=== PATIENT | female | born 1955 | race Caucasian/White ===

== ENCOUNTER 2017-05-03 12:42 | Inpatient (IN) ==
[2017-05-03] MEDS ORDERED: Naloxone 0.4 MG/ML INJ IVP PRN (16:34)
[2017-05-03] MEDS ORDERED: Ondansetron 4 MG/2 ML VIAL IVP PRN (16:34)
[2017-05-03] MEDS ORDERED: Albuterol 2.5 MG/3 ML NEBULIZER IH PRN (16:45)
[2017-05-03] MEDS ORDERED: *HR* OxyCODONE Immed Rel 5 MG TABLET PO PRN (17:21)
[2017-05-03] MEDS ORDERED: 0.9 % Sodium Chloride 1,000 ML IVC SCH (17:30)
[2017-05-03] MEDS: *HR* Morphine 2 MG/ML SYRINGE IVP PRN (17:36)
--- NOTE | 2017-05-03 17:36 | Internal Med History&Physical ---
Date of Encounter: 05/03/17 Time of Encounter: 17:00 Assessment and Plan (1) Hypertension Current visit: Yes Status: Acute Patient has no high BP at this point, will place on hydralazine IV when necessary. Will consider resume home medication after verification Qualifiers: Hypertension type: essential hypertension Qualified Code(s): I10 - Essential (primary) hypertension (2) Hypothyroidism Current visit: Yes Status: Acute Continue home medication Synthroid Qualifiers: Hypothyroidism type: acquired Qualified Code(s): E03.9 - Hypothyroidism, unspecified (3) Hypomagnesemia Current visit: Yes Status: Acute Will give magnesium IV supplement, follow-up magnesium level in a.m. (4) DVT prophylaxis Current visit: Yes Status: Acute Heparin subcutaneously (5) Hypocalcemia Current visit: No Status: Acute Had supplement in [place] emergency room. We will closely follow calcium level. (6) Hypokalemia Current visit: No Status: Acute Potassium supplement has been given in [place]. Follow potassium level in a.m. Will place patient on telemetry (7) Lung cancer Current visit: No Status: Acute Patient is on chemotherapy. We will consult oncology to direct management. Qualifiers: Laterality: unspecified laterality Lung location: unspecified part of lung Qualified Code(s): C34.90 - Malignant neoplasm of unspecified part of unspecified bronchus or lung (8) UTI (urinary tract infection) Current visit: No Status: Acute Continue Rocephin IV. Follow-up urine culture. Qualifiers: Urinary tract infection type: acute cystitis Hematuria presence: without hematuria Qualified Code(s): N30.00 - Acute cystitis without hematuria (9) Weakness Current visit: Yes Status: Acute Patient complaining of weakness, whole body numbness, and pain. Symptoms may be due to multiple factors, include chemotherapy, metastatic cancer, electrolyte abnormality, UTI. Will correct electrolyte abnormality, treat UTI, place patient on PTOT. We will check TSH, vitamin B-12, vitamin D, and folic acid level Internal Medicine - H&P: HPI Chief complaint: Whole body pain/weakness/numbness Admitted From: Home Plans for Post Hospital Care: Home History of present illness: Ms. Barba is a 62 year old female with a history of stage IV lung cancer with brain and bone metastasis on chemotherapy now, hypertension, CHF, hypothyroidism presented to [place] the emergency room for whole body weakness/pain/numbness. Patient said the symptoms started from yesterday and getting worse today. Patient denies fever, nausea, vomiting. She has a chronic diarrhea with about 3 bowel movements a day. Patient said she has general good appetite/intake but did not eat anything today. Her weakness make her difficult to walk. Patient also has dysuria, urgency, and increase the frequency of the urination. In [place] emergency room, patient was found severe hypokalemia, hypocalcemia, and hypomagnesemia. Urinalysis shows UTI. Patient was admitted to [facility] for further management. I have discussed CODE STATUS with patient. Patient clearly stated she does not want resuscitation or intubation. DNR/DNI placed. Past Med Surg Social Fam HX - Past Medical History Medical history: arthritis, asthma, cancer, CHF, COPD, GERD, hypertension, thyroid disease Psychiatric history: anxiety, depression, panic disorder - Past Surgical History Surgical History: hysterectomy, orthopedic, other - Social History Smoking Status: Former smoker Smokeless Tobacco Status: No Alcohol use: none Drug use: none - Family History Mother Living Status: Still Living Hx Family Respiratory Disorders: Yes (asthma) Father Living Status: Hx Family Cardiac Disorders: Yes Hx Family Respiratory Disorders: Yes (Asthma, emphasemia) Internal Medicine - H&P: Meds Budesonide/Formoterol 160/4.5 [Symbicort 160/4.5] 2 puff IH BIDR #3 hfa.aer.ad 01/28/16 [Rx] Acetaminophen [Tylenol Arthritis] 650 mg PO Q6H PRN 05/09/16 [History] Albuterol Sulfate [Proair Hfa] 1 - 2 puff IH Q4-6H PRN 05/09/16 [History] Multivits Min/Iron/FA/Herb#186 [Hair, Skin and Nails Caplet] 1 each PO DAILY [History] Psyllium Husk [Daily Fiber] 0.52 gm PO DAILY 05/09/16 [History] Docusate [Colace] 100 mg PO DAILY PRN 06/06/16 [History] hydroCHLOROthiazide [Hydrochlorothiazide] 25 mg PO DAILY 06/06/16 [History] Omeprazole [PriLOSEC] 20 mg PO DAILY #90 capsule 06/27/16 [Rx] Ondansetron [Zofran] 8 mg PO Q8HR PRN #90 tablet 06/27/16 [Rx] Prochlorperazine Maleate [Compazine] 10 mg PO Q6HR PRN #60 tablet 06/27/16 [Rx] Magic Mouthwash 10 ml PO TID PRN 07/07/16 [History] Potassium Chloride [K-Tab ER] 40 meq PO DAILY #10 tablet.er 02/15/17 [Rx] Metoprolol [Lopressor] 25 mg PO DAILY #90 03/08/17 [Rx] Dexamethasone [Decadron] 4 mg PO BID #60 tab 03/15/17 [Rx] Levothyroxine [Synthroid] 25 mcg PO 0630 03/27/17 [History] Morphine Sulfate SR (12 HR) [MS Contin] 1 tab PO Q8HR #90 tab 04/26/17 [Rx] Oxycodone HCl [Oxaydo] 5 mg PO Q4H PRN #90 tablet.orl 04/26/17 [Rx] Duloxetine HCl [Cymbalta] 60 mg PO DAILY #90 capsule.dr 05/01/17 [Rx] Furosemide [Lasix] 40 mg PO DAILY #90 tablet 05/01/17 [Rx] 3 Allergy/AdvReac Type Severity Reaction Status Date / Time No Known Allergies Allergy Verified 04/17/17 08:35 All Systems PM: A 10-system review of systems was performed and is negative for pertinent findings except as documented above in the HPI. - Constitutional Vitals: Temp Pulse Resp BP Pulse Ox 98.2 F 86 16 133/86 98 05/03/17 15:14 05/03/17 15:14 05/03/17 15:14 05/03/17 15:14 05/03/17 15:14 General appearance: Present: mild distress, A&O X 3, answers questions appropriately - Head Head exam: Present: atraumatic, normocephalic - Eye Eye exam: Present: PERRL, conjuntiva pink, sclera anicteric Pupils: Present: PERRL - Neck Neck exam general surgery: Present: supple, trachea midline. Absent: lymphadenopathy - Respiratory Respiratory exam: Present: CTAB. Absent: accessory muscle use, rales, rhonchi, wheezes - Cardiovascular Cardiovascular exam: Present: RRR, +S1, +S2. Absent: diastolic murmur, gallop, rubs, systolic murmur - GI/Abdominal GI/Abdominal exam: Present: normal bowel sounds, soft, no peritoneal signs. Absent: distended, tenderness - Extremities Exam Extremities exam: Present: warm, radial pulses palpable and symmetrical. Absent : calf tenderness, cyanotic, pedal edema - Neurological Exam Neurological exam: Present: CN II-XII intact, oriented X3, no focal deficits. Absent: pronater drift, facial droop, speech deficit Additional comments: Whole-body weak but no focal neuro deficit - Skin Skin exam: Present: dry, intact
[2017-05-03] MEDS: Magnesium Sulfate 2 GM in D5% in Water 100 ML IVPB SCH (18:25)
[2017-05-03] MEDS: *HR* Heparin 5,000 UNIT/ML VIAL SQ SCH (18:43)
[2017-05-03] MEDS: Ipratropium/Albuterol Neb 3 ML IH SCH ×2 (19:28→22:38)
[2017-05-04] MEDS: Magnesium Sulfate 2 GM in D5% in Water 100 ML IVPB SCH (00:33)
[2017-05-04] MEDS: *HR* Morphine 2 MG/ML SYRINGE IVP PRN (03:34)
[2017-05-04] MEDS: Ipratropium/Albuterol Neb 3 ML IH SCH ×4 (04:32→23:14)
[2017-05-04] MEDS: Acetaminophen 325 MG TABLET PO PRN ×2 (04:58→21:44)
[2017-05-04] MEDS: *HR* Heparin 5,000 UNIT/ML VIAL SQ SCH ×2 (04:58→18:01)
[2017-05-04] MEDS: Levothyroxine 25 MCG TABLET PO SCH (04:58)
[2017-05-04 05:28] LABS: Hemoglobin 9.6 g/dL (11.5-15.4); Red Cell Distribution Width 16.9 % (11.5-14.5)
[2017-05-04 05:30] LABS: Basophils % 0.2 %; Hematocrit 28.8 % (35.3-44.9); Immature Granulocytes % 1.7 % (0-4); Immature Platelets 3.2 % (1.1-6.1); Lymphocytes # 0.2 K/mcL (0.6-4.6); Lymphocytes % 5.5 %; Mean Corpuscular HGB Conc 33.3 g/dL (31.6-35.5); Mean Corpuscular Hemoglobin 31.4 pg (28.0-33.3); Mean Corpuscular Volume 94.1 fL (83.0-100.0); Mean Platelet Volume 10.5 fL (9.4-12.4); Monocytes # 0.2 K/mcL (0.0-1.3); Monocytes % 4.2 %; Neutrophils # 3.5 K/mcL (1.6-8.9); Platelet Count 106 K/mcL (140-400); Red Blood Count 3.06 M/mcL (3.82-4.97); Segmented Neutrophils % 88.4 %
[2017-05-04 05:42] LABS: Albumin 2.5 g/dL (3.5-5.0); Albumin/Globulin Ratio 0.8 (1.1-2.2); Bilirubin,Total 0.3 mg/dL (0.2-1.2); Globulin 3.2 g/dL (2.4-3.5); Potassium 3.1 mEq/L (3.5-4.5); Total Protein 5.7 g/dL (6.0-8.3)
[2017-05-04 05:47] LABS: Calcium 4.8 mg/dL (8.6-10.8)
[2017-05-04 06:17] LABS: Folate 13.5 ng/mL (7.0-31.4); Vitamin B12 > 2000 pg/mL (213-816)
[2017-05-04] MEDS ORDERED: Calcium Gluconate 2,000 MG in D5% in Water 100 ML IVPB ONE ×2 (07:54→16:00)
[2017-05-04 08:53] LABS: Magnesium 2.3 mg/dL (1.6-2.6)
[2017-05-04] MEDS ORDERED: Potassium Chloride Elixir 20 MEQ/15 ML UDC PO ONE ×2 (10:31→13:00)
[2017-05-04 15:18] LABS: Potassium 3.1 mEq/L (3.5-4.5)
[2017-05-04 15:33] LABS: Ionized Calcium 0.67 mmol/L (1.15-1.35)
[2017-05-04] MEDS ORDERED: *HR* OxyCODONE Immed Rel 5 MG TABLET PO PRN (15:37)
[2017-05-04] MEDS ORDERED: Ondansetron ODT 4 MG TAB.RAPDIS PO PRN (15:37)
--- NOTE | 2017-05-04 15:41 | Internal Med Progress Note ---
<Cindy Newell Dwayne - Last Filed: 05/04/17 16:06> Date of Encounter: 05/04/17 Time of Encounter: 14:00 - Assessment and plan (1) Weakness Current Visit: Yes Status: Acute Assessment and plan: We think patients symptoms are consistent with hypocalcemia. -We will follow nephrology and Heme/Onc recommendations. (2) Hypocalcemia Current Visit: Yes Status: Acute Assessment and plan: Patient with hypocalcemia. -Calcium gluconate given a dose this morning. -2 grams calcium gluconate again this afternoon. -Vitamin D 50,000 high dose given this afternoon. -We will continue to monitor closely. -Hematology suggest that patient's hypocalcemia is due to something within the kidney. -Nephrology consult. We will follow their recommendations. (3) Urinary retention Current Visit: Yes Status: Acute Assessment and plan: FU bladder scan results. (4) Hypomagnesemia Current Visit: Yes Status: Acute Assessment and plan: Patient's magnesium is now normal. Will monitor. (5) Lung cancer Current Visit: No Status: Acute Assessment and plan: Oncology following. Qualifiers: Laterality: unspecified laterality Lung location: unspecified part of lung Qualified Code(s): C34.90 - Malignant neoplasm of unspecified part of unspecified bronchus or lung (6) Hypertension Current Visit: Yes Status: Acute Assessment and plan: Patient with IV hydralazine when necessary. Qualifiers: Hypertension type: essential hypertension Qualified Code(s): I10 - Essential (primary) hypertension (7) Hypothyroidism Current Visit: Yes Status: Acute Assessment and plan: Continue home medication synthroid. Qualifiers: Hypothyroidism type: acquired Qualified Code(s): E03.9 - Hypothyroidism, unspecified (8) DVT prophylaxis Current Visit: Yes Status: Acute Assessment and plan: SQ heparin (9) UTI (urinary tract infection) Current Visit: Yes Status: Acute Assessment and plan: Continue IV rocephin for gram negative homa UTI. Qualifiers: Urinary tract infection type: acute cystitis Hematuria presence: without hematuria Qualified Code(s): N30.00 - Acute cystitis without hematuria - Subjective Interval history: Mrs. Barba is a 62-year-old female with past medical history of stage IV lung cancer with brain and bone was passed disease currently receiving chemotherapy, hypertension, congestive heart failure, and hypothyroidism. She presented to the [place] emergency room for whole body weakness and numbness. Patient was admitted after she was found to be severely hypokalemic, hypocalcemic, and hypo-magnesemic. Urinalysis also showed a UTI. This afternoon, patient states she feels better from yesterday, as she states her energy has improved. She states she is still having feeling throughout her muscles. She also says she has a difficult time voiding without assistance. - Constitutional Vitals: Temp Pulse Resp BP Pulse Ox 97.6 F 100 19 132/81 96 05/04/17 11:19 05/04/17 11:19 05/04/17 11:19 05/04/17 11:19 05/04/17 15:34 General appearance: Present: mild distress, A&O X 3, answers questions appropriately - Respiratory Respiratory exam: Present: decreased breath sounds (Patients with decreased breath sounds over her left middle lobe.). Absent: accessory muscle use, rales , rhonchi, wheezes - Cardiovascular Cardiovascular exam: Present: RRR, +S1, +S2. Absent: diastolic murmur, gallop, rubs, systolic murmur - Extremities Exam Extremities exam: Present: warm, radial pulses palpable and symmetrical. Absent : calf tenderness, cyanotic Internal Medicine: Result - Labs CBC & Chem 7: 05/04/17 04:52 05/04/17 14:54 Labs: Short CBC 05/04/17 Range/Units 04:52 WBC 4.0 L (4.3-11.1) K/mcL Hgb 9.6 L (11.5-15.4) g/dL Hct 28.8 L (35.3-44.9) % Plt Count 106 L (140-400) K/mcL Neutrophils # 3.5 (1.6-8.9) K/mcL BMP 05/04/17 05/04/17 05/04/17 04:52 14:54 14:54 Sodium 135 L Potassium 3.1 L 3.1 L Chloride 102 Carbon Dioxide 20 BUN 22 H Creatinine 1.15 H Glucose 200 H Calcium 4.8 L* 5.5 L* Liver Function 05/04/17 Range/Units 04:52 Total Bilirubin 0.3 (0.2-1.2) mg/dL AST 16 (5-34) Units/L ALT 26 (0-55) Units/L Alkaline Phosphatase 82 (38-126) Units/L Albumin 2.5 L (3.5-5.0) g/dL Consult Discharge Plan - Plan Referrals: NONE,PCP [Primary Care Provider] - <VitaliyRosmery - Last Filed: 05/04/17 18:03> Date of Encounter: 05/04/17 - Assessment and plan (1) Hypertension Current Visit: Yes Status: Acute Qualifiers: Hypertension type: essential hypertension Qualified Code(s): I10 - Essential (primary) hypertension (2) Hypothyroidism Current Visit: Yes Status: Acute Qualifiers: Hypothyroidism type: acquired Qualified Code(s): E03.9 - Hypothyroidism, unspecified (3) Hypomagnesemia Current Visit: Yes Status: Acute (4) DVT prophylaxis Current Visit: Yes Status: Acute (5) Hypocalcemia Current Visit: No Status: Inactive (6) Hypokalemia Current Visit: No Status: Inactive (7) Lung cancer Current Visit: No Status: Acute Qualifiers: Laterality: unspecified laterality Lung location: unspecified part of lung Qualified Code(s): C34.90 - Malignant neoplasm of unspecified part of unspecified bronchus or lung (8) UTI (urinary tract infection) Current Visit: No Status: Inactive Qualifiers: Urinary tract infection type: acute cystitis Hematuria presence: without hematuria Qualified Code(s): N30.00 - Acute cystitis without hematuria (9) Weakness Current Visit: Yes Status: Acute - Constitutional Vitals: Temp Pulse Resp BP Pulse Ox 98.0 F 99 16 135/79 96 05/04/17 15:00 05/04/17 15:00 05/04/17 15:44 05/04/17 15:00 05/04/17 15:44 Internal Medicine: Result - Labs CBC & Chem 7: 05/04/17 04:52 05/04/17 14:54 Labs: Short CBC 05/04/17 Range/Units 04:52 WBC 4.0 L (4.3-11.1) K/mcL Hgb 9.6 L (11.5-15.4) g/dL Hct 28.8 L (35.3-44.9) % Plt Count 106 L (140-400) K/mcL Neutrophils # 3.5 (1.6-8.9) K/mcL BMP 05/04/17 05/04/17 05/04/17 04:52 14:54 14:54 Sodium 135 L Potassium 3.1 L 3.1 L Chloride 102 Carbon Dioxide 20 BUN 22 H Creatinine 1.15 H Glucose 200 H Calcium 4.8 L* 5.5 L* Liver Function 05/04/17 Range/Units 04:52 Total Bilirubin 0.3 (0.2-1.2) mg/dL AST 16 (5-34) Units/L ALT 26 (0-55) Units/L Alkaline Phosphatase 82 (38-126) Units/L Albumin 2.5 L (3.5-5.0) g/dL - Attending Attestation I have seen and examined the patient independently. I have discussed with resident Dr Yang regarding the management plan. Agree with the documentation. Patient feels better than yesterday. Still very weak. Has difficulty to urinate, need straight catheter. We will encourage patient urinate by herself, if not successful, will consider straight catheter or Tuttle catheter. Oncology consult appreciated. Will also consult nephrology for electrolyte abnormality. Continue potassium and calcium supplement. Patient was found severe vitamin D deficiency, vitamin D supplement started.
--- NOTE | 2017-05-04 15:54 | Nephrology Consult Note ---
Date of Encounter: 05/04/17 Time of Encounter: 15:53 Assessment and Plan (1) Hypocalcemia Current Visit: Yes Status: Acute patient presentedwith hypocalcemia with a calcium 4.8. Currently 5.5. Patient denies any history of hypocalcemia, thyroid or parathyroid surgery. - Last calcium level 04/17/2017 was 8.8. - TSH 0.89 on levothyroxine replacement - 25 -OH vitamin D 10 - Vitamin B12 greater than 2000 - Tuttle 13.5 - No history of thyroid surgery or parathyroid dysfunction. Patient presented with spontaneous hypocalcemia with unknown cause. She is symptomatic with tremors, numbness and tingling in her face mouth, extremities. - At this time we will replace calcium deficiency and she continues to drop she may need urinary calcium testing. Plan: - 3 g calcium gluconate IV - Repeat calcium level one hour post calcium gluconate transfusion, contact Dr. Neville with results. (2) Chronic kidney disease, stage III (moderate) Current Visit: Yes Status: Acute Known history of chronic kidney disease stage III with a GFR around 50. She follows up with Dr. Butt with the last visit in January. Current GFR 48, creatinine 1.15 setting of hypocalcemia, mild dehydration. Plan: - Continue perform most oral intake and adequate hydration - Avoid nephrotoxic medications renally dose antibiotics - Strict intake and output measuring, daily weights (3) Lung cancer Current Visit: No Status: Acute Patient has known lung cancer with metastatic disease to the brain and bones. - Patient following with oncology - Several weeks since last chemotherapy. Qualifiers: Laterality: unspecified laterality Lung location: unspecified part of lung Qualified Code(s): C34.90 - Malignant neoplasm of unspecified part of unspecified bronchus or lung (4) Hypothyroidism Current Visit: Yes Status: Acute Patient has a history of hypothyroidism for which she takes levothyroxine 25mcg daily. TSH 0.809 Qualifiers: Hypothyroidism type: acquired Qualified Code(s): E03.9 - Hypothyroidism, unspecified History of Present Illness - Reason for Consult Consult date: 05/04/17 Acute Kidney Injury Requesting physician: Tra Caban Jr - Chief Complaint Tingling - History of Present Illness Mrs. Barba 62-year-old female with known history of stage IV lung cancer with metastatic disease to the brain and bones, currently on chemotherapy. History of hypertension CHF and hypothyroidism who was transferred from [facility] with hypocalcemia. She regularly follows up with for evaluation and treatment of her CKD stage III. Patient states that she presented to [facility] with full body weakness and tingling in her extremities and face and extremity tremors. She states that she has never had symptoms like this previously but they have been progressively getting worse. She last had chemotherapy several weeks ago and underwent a recent CT scan for which she is still awaiting results. She denies any history of hypocalcemia or change in medications. She does have a history of hypothyroidism but denies any history of thyroid surgery, thyroidectomy or parathyroidectomy. She denies any other symptoms including fevers, chills, sweating, sputum production, shortness of breath, cough, chest pain, palpitations, abdominal pain, nausea vomiting diarrhea constipation or change in urination. Past Med Surg Social Fam HX - Past Medical History Medical history: arthritis, asthma, cancer, CHF, COPD, GERD, hypertension, thyroid disease Psychiatric history: anxiety, depression, panic disorder - Past Surgical History Surgical History: hysterectomy, orthopedic, other - Social History Smoking Status: Former smoker Smokeless Tobacco Status: No Alcohol use: none Drug use: none - Family History Mother Living Status: Still Living Hx Family Respiratory Disorders: Yes (asthma) Father Living Status: Hx Family Cardiac Disorders: Yes Hx Family Respiratory Disorders: Yes (Asthma, emphasemia) Medications and Allergies Budesonide/Formoterol 160/4.5 [Symbicort 160/4.5] 2 puff IH BIDR #3 hfa.aer.ad 01/28/16 [Rx] Acetaminophen [Tylenol Arthritis] 650 mg PO Q6H PRN 05/09/16 [History] Albuterol Sulfate [Proair Hfa] 1 - 2 puff IH Q4-6H PRN 05/09/16 [History] Multivits Min/Iron/FA/Herb#186 [Hair, Skin and Nails Caplet] 1 each PO DAILY [History] Psyllium Husk [Daily Fiber] 0.52 gm PO DAILY 05/09/16 [History] Docusate [Colace] 100 mg PO DAILY PRN 06/06/16 [History] hydroCHLOROthiazide [Hydrochlorothiazide] 25 mg PO DAILY 06/06/16 [History] Omeprazole [PriLOSEC] 20 mg PO DAILY #90 capsule 06/27/16 [Rx] Ondansetron [Zofran] 8 mg PO Q8HR PRN #90 tablet 06/27/16 [Rx] Prochlorperazine Maleate [Compazine] 10 mg PO Q6HR PRN #60 tablet 06/27/16 [Rx] Magic Mouthwash 10 ml PO TID PRN 07/07/16 [History] Potassium Chloride [K-Tab ER] 40 meq PO DAILY #10 tablet.er 02/15/17 [Rx] Dexamethasone [Decadron] 4 mg PO BID #60 tab 03/15/17 [Rx] Oxycodone HCl [Oxaydo] 5 mg PO Q4H PRN #90 tablet.orl 04/26/17 [Rx] Duloxetine HCl [Cymbalta] 60 mg PO DAILY #90 capsule.dr 05/01/17 [Rx] Furosemide [Lasix] 40 mg PO DAILY #90 tablet 05/01/17 [Rx] Levothyroxine [Synthroid] 75 mcg PO 0630 05/03/17 [History] Metoprolol XL (24 HR) Succ [Toprol XL] 25 mg PO DAILY 05/03/17 [History] Morphine Sulfate SR (12 HR) [MS Contin] 15 mg PO Q8HR 05/03/17 [History] 3 Allergy/AdvReac Type Severity Reaction Status Date / Time No Known Allergies Allergy Verified 04/17/17 08:35 Review of Systems Constitutional: malaise, weakness, no excessive sweating, no weight loss Eyes: bilateral: blurred vision (patient denies), diplopia (patient denies) Nose, mouth and throat: no dizziness, no headache(s) Cardiovascular: no chest pain, no palpitations Respiratory: no cough, no dyspnea Gastrointestinal: no abdominal pain, no change in bowel habits Musculoskeletal: no muscle weakness, no numbness Integumentary: no hirsutism, no striae Neurological: numbness, tingling (Extremities and face), tremor(s) (All 4 extremities) Psychiatric: no depression, no difficulty concentrating Endocrine: as per HPI Hematologic/Lymphatic: no easy bruising, no lymphadenopathy Exam - Vital Signs Vital signs: Initial Vital Signs Temp Pulse Resp BP Pulse Ox 98.2 F 86 16 133/86 98 05/03/17 15:14 05/03/17 15:14 05/03/17 15:14 05/03/17 15:14 05/03/17 15:14 Vital Signs - Last 8 Hours Temp Pulse Resp BP Pulse Ox 05/04/17 15:44 16 96 05/04/17 15:34 96 05/04/17 15:00 98.0 F 99 16 135/79 97 05/04/17 11:19 97.6 F 100 19 132/81 96 05/04/17 10:36 16 91 Intake and Output 05/03/17 05/04/17 05/04/17 23:59 07:59 15:59 Intake Total 104 / 104 Output Total 1400 / 1400 500 / 500 Balance -1296 / -1296 -500 / -500 Intake: IV Fluids 104 / 104 Magnesium Sulfate 2 GM In 104 / 104 Dextrose 5% 100 ML @ 100 mls/hr IVPB Q6HR [facility] Rx#:[id number] Output: Urine 1400 / 1400 Straight Cath 500 / 500 Other: Meal Dinner Percent of Meal Consumed 100% Weight 93.304 kg Patient Weight 05/04/17 23:59 Weight 93.304 kg - General Appearance Exam: General: Patient alert, awake, oriented 3, interactive, in no acute distress HEENT: Patient demonstrates miles face, loss of hair secondary to radiation chemotherapy, oral mucosa moist, uvula midline, neck supple trachea midline no palpable lymphadenopathy, no thyromegaly. Chest: Symmetric bilateral correlating with respiratory effort, effort nonlabored. Cardiac: Regular rate and rhythm, positive S1 and S2. no bruits appreciated bilateral carotids, Radial pulses 2+ bilateral, posterior tibial and dorsal pedal pulses 2+ bilateral. Respiratory: Clear to auscultation all lung ross Abdomen: Soft, nontender, positive bowel sounds, no palpable masses appreciated on examination Extremities: Symmetric bilateral, bilateral lower extremities with trace bilateral lower extremity edema. Venous stasis changes to lower extremity. patient moving all 4 extremities spontaneously. Neurologic: No focal deficits appreciated on examination. Face symmetric, bilateral upper and lower extremity tremors appreciated on active movements. Results - Lab Results 05/04/17 04:52 05/04/17 14:54 Most recent lab results Calcium 5.5 mg/dL (8.6-10.8) L* 05/04/17 14:54 Magnesium 2.3 mg/dL (1.6-2.6) 05/04/17 04:52 Consult Discharge Plan - Plan Referrals: NONE,PCP [Primary Care Provider] -
[2017-05-04] MEDS ORDERED: Calcium Chloride 1,000 MG in 0.9 % Sodium Chloride 100 ML IVPB ONE (16:38)
--- NOTE | 2017-05-04 16:41 | Oncology Inp Consult Note ---
<Tra Caban Jr - Last Filed: 05/04/17 16:45> Date of Encounter: 05/04/17 Time of Encounter: 14:40 Assessment and Plan (1) Metastatic adenocarcinoma to brain Status: Acute Assessment and plan: This is a very pleasant 62 of female with known history of metastatic right lung adenocarcinoma with locally advanced disease and brain metastasis. Follows Dr. Odin Cabrera at the [facility]. PD-L1 <1%, EGFR/ALK/ROS/MET/RET negative. Prior therapy: 1. Carboplatin/Alimta 11/02 x 6 cycles followed by Alimta maintenance 2. Carboplatin/Alimta reinitated 08/06 x 1 cycle. D/C'd due to rash 3. Carbopaltin/Gemcitabine 03/06 x 6 cycles. D/C'd after Coomb's positive hemolytic reaction 4. Rechallenged Carboplatin/Gemcitabine 06/06. Treatment stopped prior to completing first cycle due to significant clinical decompensation with septic shock, hemolytic anemia requiring hospitalization for critical care. 5. Nivolumab 08/18/16 x 5 cycles. Stopped due to progression. 6. SRS to brain metastases involving the left cerebellar, right parietal, right parietal anterior, left parietal posterior area. Treatment by Dr. Liao. : Current therapy: 1. Carboplatin/Paclitaxel/Avastin initiated 01/06. Dose reduced for cycle #3 Last dose 04/17/17, Neulasta given 04/18/17. Treatment intent: Palliative Transferred yesterday from [facility] emergency department. The patient had critical low calcium 4.8, and given calcium gluconate 2 g. She was given another 2 g this morning at 9:44 AM. Patient states she has difficulty urinating. She was straight cathed at 4:30 this morning with 500 ML removed. The patient has not had any urination since that time. She is eating and drinking plenty of fluids. Also has hypomagnesemia and hypokalemia that is being replaced. The patient is over 2 weeks out since her last treatment. She had normal calcium at 8.8 the last saw her in our office on 04/17/17, with no history of severe hypocalcemia. The patient has symptoms of numbness, myalgias, malaise, but denies any chest pain or palpitations. I was very concerned after assessing the patient, as the patient calcium has not responded quickly with emergent calcium gluconate with continued hypokalemia. Patient with WBC and ANC 3.5, she is not neutropenic. She does have chronic kidney disease. In the face of her symptoms with decreased urination and urinary retention with urinary tract infection, we consulted to Dr. Neville of [facility]. She follows Dr. Ari Butt as an outpatient. We will await nephrology assessment and follow along. Supportive care, fluids, antibiotics. Dr Lund application development consultant for weekend, and she will assess patient as well. She was advised of above plan. (2) Hypocalcemia Status: Acute (3) Hypomagnesemia Status: Acute (4) Hypokalemia Status: Acute (5) Chronic kidney disease, stage III (moderate) Status: Acute (6) Adenocarcinoma of right lung Status: Acute - Data of Consult Patient: known to practice within the last 3 years Consult date: 05/04/17 Requesting Physician: Sarah Schmid CNP Primary Care Provider: PCP NONE - Consult Narrative Reason for consult: lung cancer patient with critical hypocalcemia History of present illness: Ms. Barba is a 62 year old female with a history of stage IV lung cancer with brain and bone metastasis on chemotherapy now, hypertension, CHF, hypothyroidism presented to [facility] the emergency room for whole body weakness/pain/numbness. Patient said the symptoms started two days ago. Patient denies fever, nausea, vomiting. She has a chronic diarrhea with about 3 bowel movements a day. Patient said she has general good appetite/intake,and is drinking fluids. Her weakness make her difficult to walk. Patient also has dysuria, urgency, and increase the frequency of the urination. In [facility] emergency room, patient was found severe hypokalemia, hypocalcemia (4.8), and hypomagnesemia. Urinalysis shows UTI. Patient transferred to [facility] for further management. On 05/04/17, patient had to be straight cathed at 430am with 500ml removed. She has not urinated since that time. She has had 4 gm of calcium gluconate over the last 24 hours (last doese at 944 am. New level taken is still critical low at 5.5 despite treatment. As far as oncology history, patient follows Dr Odin Cabrera at [facility]. Diagnosis: 1. Metastatic right lung adenocarcinoma with locally advanced disease and brain metastases. PD-L1 <1%, EGFR/ALK/ROS/MET/RET negative. Prior therapy: 1. Carboplatin/Alimta 11/02 x 6 cycles followed by Alimta maintenance 2. Carboplatin/Alimta reinitated 08/06 x 1 cycle. D/C'd due to rash 3. Carbopaltin/Gemcitabine 03/06 x 6 cycles. D/C'd after Coomb's positive hemolytic reaction 4. Rechallenged Carboplatin/Gemcitabine 06/06. Treatment stopped prior to completing first cycle due to significant clinical decompensation with septic shock, hemolytic anemia requiring hospitalization for critical care. 5. Nivolumab 08/18/16 x 5 cycles. Stopped due to progression. 6. SRS to brain metastases involving the left cerebellar, right parietal, right parietal anterior, left parietal posterior area. Treatment by Dr. Liao. : Current therapy: 1. Carboplatin/Paclitaxel/Avastin initiated 01/06. Dose reduced for cycle #3 Last dose 04/17/17, Neulasta given 04/18/17. Treatment intent: Palliative Past Med Surg Social Fam HX - Past Medical History Medical history: arthritis, asthma, cancer, CHF, COPD, GERD, hypertension, thyroid disease Psychiatric history: anxiety, depression, panic disorder - Past Surgical History Surgical History: hysterectomy, orthopedic, other - Social History Smoking Status: Former smoker Smokeless Tobacco Status: No Alcohol use: none Drug use: none - Family History Mother Living Status: Still Living Hx Family Respiratory Disorders: Yes (asthma) Father Living Status: Hx Family Cardiac Disorders: Yes Hx Family Respiratory Disorders: Yes (Asthma, emphasemia) Medications and Allergies Budesonide/Formoterol 160/4.5 [Symbicort 160/4.5] 2 puff IH BIDR #3 hfa.aer.ad 01/28/16 [Rx] Acetaminophen [Tylenol Arthritis] 650 mg PO Q6H PRN 05/09/16 [History] Albuterol Sulfate [Proair Hfa] 1 - 2 puff IH Q4-6H PRN 05/09/16 [History] Multivits Min/Iron/FA/Herb#186 [Hair, Skin and Nails Caplet] 1 each PO DAILY [History] Psyllium Husk [Daily Fiber] 0.52 gm PO DAILY 05/09/16 [History] Docusate [Colace] 100 mg PO DAILY PRN 06/06/16 [History] hydroCHLOROthiazide [Hydrochlorothiazide] 25 mg PO DAILY 06/06/16 [History] Omeprazole [PriLOSEC] 20 mg PO DAILY #90 capsule 06/27/16 [Rx] Ondansetron [Zofran] 8 mg PO Q8HR PRN #90 tablet 06/27/16 [Rx] Prochlorperazine Maleate [Compazine] 10 mg PO Q6HR PRN #60 tablet 06/27/16 [Rx] Magic Mouthwash 10 ml PO TID PRN 07/07/16 [History] Potassium Chloride [K-Tab ER] 40 meq PO DAILY #10 tablet.er 02/15/17 [Rx] Dexamethasone [Decadron] 4 mg PO BID #60 tab 03/15/17 [Rx] Oxycodone HCl [Oxaydo] 5 mg PO Q4H PRN #90 tablet.orl 04/26/17 [Rx] Duloxetine HCl [Cymbalta] 60 mg PO DAILY #90 capsule.dr 05/01/17 [Rx] Furosemide [Lasix] 40 mg PO DAILY #90 tablet 05/01/17 [Rx] Levothyroxine [Synthroid] 75 mcg PO 0630 05/03/17 [History] Metoprolol XL (24 HR) Succ [Toprol XL] 25 mg PO DAILY 05/03/17 [History] Morphine Sulfate SR (12 HR) [MS Contin] 15 mg PO Q8HR 05/03/17 [History] 3 Allergy/AdvReac Type Severity Reaction Status Date / Time No Known Allergies Allergy Verified 04/17/17 08:35 Constitutional: Present: fatigue, malaise, weight gain (fluid weight) Respiratory: Present: dyspnea, dyspnea on exertion Musculoskeletal: Present: joint swelling, limited range of motion, muscle weakness, myalgias, numbness Oncology - Exam - Constitutional Vitals: Temp Pulse Resp BP Pulse Ox 98.0 F 99 16 135/79 96 05/04/17 15:00 05/04/17 15:00 05/04/17 15:44 05/04/17 15:00 05/04/17 15:44 General appearance: mild distress (dyspnea) - Head Head exam: Present: atraumatic, normocephalic Additional comments: alopecia - Eye Eye exam: Present: normal appearance, PERRL - Neck Neck exam: Present: full ROM, normal inspection - Respiratory Respiratory exam: Present: respiratory distress (mild with oxygen per NC) - Cardiovascular Cardiovascular exam: Present: RRR - GI/Abdominal GI/Abdominal exam: Present: soft - Extremities Exam Extremities exam: Present: joint swelling, pedal edema - Neurological Exam Neurological exam: Present: alert, oriented X3, no focal deficits - Psychiatric Psychiatric exam: Present: flat affect - Skin Skin exam: Present: dry, intact, pallor, warm Oncology - Results Labs: Short CBC 05/04/17 Range/Units 04:52 WBC 4.0 L (4.3-11.1) K/mcL Hgb 9.6 L (11.5-15.4) g/dL Hct 28.8 L (35.3-44.9) % Plt Count 106 L (140-400) K/mcL Neutrophils # 3.5 (1.6-8.9) K/mcL BMP 05/04/17 05/04/17 05/04/17 04:52 14:54 14:54 Sodium 135 L Potassium 3.1 L 3.1 L Chloride 102 Carbon Dioxide 20 BUN 22 H Creatinine 1.15 H Glucose 200 H Calcium 4.8 L* 5.5 L* Liver Function 05/04/17 Range/Units 04:52 Total Bilirubin 0.3 (0.2-1.2) mg/dL AST 16 (5-34) Units/L ALT 26 (0-55) Units/L Alkaline Phosphatase 82 (38-126) Units/L Albumin 2.5 L (3.5-5.0) g/dL Consult Discharge Plan - Plan Referrals: NONE,PCP [Primary Care Provider] - <Thom Lund - Last Filed: 05/04/17 18:30> Date of Encounter: 05/04/17 - Data of Consult Requesting Physician: Sarah Schmid CNP Primary Care Provider: PCP NONE - Consult Narrative History of present illness: I examined this patient and my medical decision-making was reviewed with the Advanced Practice Nurse, Consuelo Caban. I agree with the documented findings, disposition and treatment plan as described except to the extent set forth below. Oncology - Exam - Constitutional Vitals: Temp Pulse Resp BP Pulse Ox 98.0 F 99 16 135/79 96 05/04/17 15:00 05/04/17 15:00 05/04/17 15:44 05/04/17 15:00 05/04/17 15:44 Oncology - Results Labs: Short CBC 05/04/17 Range/Units 04:52 WBC 4.0 L (4.3-11.1) K/mcL Hgb 9.6 L (11.5-15.4) g/dL Hct 28.8 L (35.3-44.9) % Plt Count 106 L (140-400) K/mcL Neutrophils # 3.5 (1.6-8.9) K/mcL BMP 05/04/17 05/04/17 05/04/17 04:52 14:54 14:54 Sodium 135 L Potassium 3.1 L 3.1 L Chloride 102 Carbon Dioxide 20 BUN 22 H Creatinine 1.15 H Glucose 200 H Calcium 4.8 L* 5.5 L* Liver Function 05/04/17 Range/Units 04:52 Total Bilirubin 0.3 (0.2-1.2) mg/dL AST 16 (5-34) Units/L ALT 26 (0-55) Units/L Alkaline Phosphatase 82 (38-126) Units/L Albumin 2.5 L (3.5-5.0) g/dL
[2017-05-04] MEDS ORDERED: Calcium Gluconate 1,000 MG in D5% in Water 100 ML IVPB ONE (16:56)
[2017-05-04] MEDS: Cholecalciferol (D-3) 1,000 UNIT TABLET PO SCH (17:59)
[2017-05-04] MEDS: *HR* Morphine Sulfate SR (12 HR) 15 MG TABLET.ER PO SCH ×2 (18:00→23:58)
[2017-05-04] MEDS: Budesonide/Formoterol 160/4.5 MDI IH SCH (23:14)
[2017-05-05 03:43] LABS: Hemoglobin 8.6 g/dL (11.5-15.4)
[2017-05-05 03:45] LABS: Basophils % 0.2 %; Hematocrit 25.9 % (35.3-44.9); Immature Granulocytes % 2.1 % (0-4); Immature Platelets 2.8 % (1.1-6.1); Lymphocytes # 0.3 K/mcL (0.6-4.6); Mean Corpuscular HGB Conc 33.2 g/dL (31.6-35.5); Mean Corpuscular Hemoglobin 31.4 pg (28.0-33.3); Mean Corpuscular Volume 94.5 fL (83.0-100.0); Mean Platelet Volume 10.4 fL (9.4-12.4); Monocytes # 0.3 K/mcL (0.0-1.3); Monocytes % 5.6 %; Neutrophils # 4.5 K/mcL (1.6-8.9); Platelet Count 105 K/mcL (140-400); Red Blood Count 2.74 M/mcL (3.82-4.97); Red Cell Distribution Width 16.7 % (11.5-14.5); Segmented Neutrophils % 87.1 %
[2017-05-05 04:05] LABS: Alanine Aminotransferase 24 Units/L (0-55); Albumin 2.6 g/dL (3.5-5.0); Albumin/Globulin Ratio 0.8 (1.1-2.2); Alkaline Phosphatase 78 Units/L (38-126); Aspartate Amino Transferase 16 Units/L (5-34); BUN/Creatinine Ratio 21 (6-26); Blood Urea Nitrogen 26 mg/dL (7-20); Calcium 6.1 mg/dL (8.6-10.8); Carbon Dioxide 18 mEq/L (19-29); Chloride 106 mEq/L (98-109); Globulin 3.2 g/dL (2.4-3.5); Glucose 177 mg/dL (70-99); Magnesium 1.8 mg/dL (1.6-2.6); Osmolality,Calculated 291 (280-300); Sodium 136 mEq/L (136-145); Total Protein 5.8 g/dL (6.0-8.3); eGFR For African Americans 52 (> 60); eGFR For Non-African Americans 43 (> 60)
[2017-05-05 04:06] LABS: Bilirubin,Total < 0.2 mg/dL (0.2-1.2); Potassium 4.2 mEq/L (3.5-4.5)
[2017-05-05] MEDS: Ipratropium/Albuterol Neb 3 ML IH SCH ×4 (04:07→22:37)
[2017-05-05] MEDS: Levothyroxine 25 MCG TABLET PO SCH (05:19)
[2017-05-05] MEDS: *HR* Heparin 5,000 UNIT/ML VIAL SQ SCH ×2 (05:19→18:31)
[2017-05-05] MEDS: Metoprolol XL (24 HR) Succ 25 MG TAB.ER.24H PO SCH (09:24)
[2017-05-05] MEDS: *HR* Morphine Sulfate SR (12 HR) 15 MG TABLET.ER PO SCH ×2 (09:24→15:28)
[2017-05-05] MEDS: Cholecalciferol (D-3) 1,000 UNIT TABLET PO SCH (09:24)
[2017-05-05] MEDS: Multivit/Ca/Min/Fe/FA 1 TAB TABLET PO SCH (09:24)
[2017-05-05] MEDS: Psyllium 1 PACKET POWD.PACK PO SCH (09:25)
[2017-05-05] MEDS: hydroCHLOROthiazide 25 MG TABLET PO SCH (09:25)
[2017-05-05] MEDS: Furosemide 40 MG TABLET PO SCH (09:25)
[2017-05-05] MEDS: Budesonide/Formoterol 160/4.5 MDI IH SCH ×2 (11:32→22:37)
--- NOTE | 2017-05-05 14:17 | Internal Med Progress Note ---
Date of Encounter: 05/05/17 Time of Encounter: 10:00 - Assessment and plan (1) Hypertension Current Visit: Yes Status: Acute Assessment and plan: Continue home medications. Hydralazine IV as needed Qualifiers: Hypertension type: essential hypertension Qualified Code(s): I10 - Essential (primary) hypertension (2) Hypothyroidism Current Visit: Yes Status: Acute Assessment and plan: Continue home medication synthroid. Qualifiers: Hypothyroidism type: acquired Qualified Code(s): E03.9 - Hypothyroidism, unspecified (3) Hypomagnesemia Current Visit: Yes Status: Acute Assessment and plan: Patient's magnesium is now normal. Will monitor. (4) DVT prophylaxis Current Visit: Yes Status: Acute Assessment and plan: SQ heparin (5) Hypocalcemia Current Visit: No Status: Inactive Assessment and plan: Severe low but improved. Add the by mouth calcium supplement. Continue vitamin D and Rocaltrol. (6) Hypokalemia Current Visit: No Status: Inactive Assessment and plan: Improved after supplementation. Potassium level normal today (7) Lung cancer Current Visit: No Status: Acute Assessment and plan: Oncology following. Qualifiers: Laterality: unspecified laterality Lung location: unspecified part of lung Qualified Code(s): C34.90 - Malignant neoplasm of unspecified part of unspecified bronchus or lung (8) UTI (urinary tract infection) Current Visit: No Status: Inactive Assessment and plan: Continue Rocephin IV. Urine culture from [facility] shows Escherichia coli sensitive to Rocephin Qualifiers: Urinary tract infection type: acute cystitis Hematuria presence: without hematuria Qualified Code(s): N30.00 - Acute cystitis without hematuria (9) Weakness Current Visit: Yes Status: Acute Assessment and plan: We think patients symptoms are consistent with hypocalcemia, malignancy. Continue correct electrolytes abnormality. Continue PT OT when patient in hospital. Weakness has improved after treatment - Time Spent With Patient 25 - 35 minutes - Subjective Interval history: Patient was seen and examined. Feels much better, less tingling and numbness. Can walk with assistance. Eat and drink well. Hypocalcemia has improved. Slightly worsening renal function. Vitals are stable. The calcium level is 6.1 , corrected calcium level 7.22. Will continue vitamin D and Rocaltrol. Closely follow up renal function and electrolytes level. PT OT recommend ECF discharge , however, patient refused ECF discharge and insist to go home. - Constitutional Vitals: Temp Pulse Resp BP Pulse Ox 98.5 F 96 16 139/87 100 05/05/17 11:53 05/05/17 11:53 05/05/17 11:53 05/05/17 11:53 05/05/17 11:53 General appearance: Present: mild distress, A&O X 3, answers questions appropriately - Head Head exam: Present: atraumatic, normocephalic - Eye Eye exam: Present: PERRL, conjuntiva pink, sclera anicteric Pupils: Present: PERRL - Neck Neck exam general surgery: Present: supple, trachea midline. Absent: lymphadenopathy - Respiratory Respiratory exam: Present: CTAB. Absent: accessory muscle use, rales, rhonchi, wheezes - Cardiovascular Cardiovascular exam: Present: RRR, +S1, +S2. Absent: diastolic murmur, gallop, rubs, systolic murmur - GI/Abdominal GI/Abdominal exam: Present: normal bowel sounds, soft, no peritoneal signs. Absent: distended, tenderness - Extremities Exam Extremities exam: Present: warm, radial pulses palpable and symmetrical. Absent : calf tenderness, cyanotic, pedal edema - Neurological Exam Neurological exam: Present: CN II-XII intact, oriented X3, no focal deficits. Absent: pronater drift, facial droop, speech deficit - Skin Skin exam: Present: dry, intact Internal Medicine: Result - Labs CBC & Chem 7: 05/05/17 03:25 05/05/17 03:25 Labs: Short CBC 05/04/17 05/05/17 Range/Units 04:52 03:25 WBC 4.0 L 5.2 (4.3-11.1) K/mcL Hgb 9.6 L 8.6 L (11.5-15.4) g/dL Hct 28.8 L 25.9 L (35.3-44.9) % Plt Count 106 L 105 L (140-400) K/mcL Neutrophils # 3.5 4.5 (1.6-8.9) K/mcL BMP 05/04/17 05/04/17 05/05/17 14:54 14:54 03:25 Sodium Potassium 3.1 L Chloride Carbon Dioxide BUN Creatinine Glucose Calcium 5.5 L* 6.1 L 05/05/17 03:25 Sodium 136 Potassium 4.2 D Chloride 106 Carbon Dioxide 18 L BUN 26 H Creatinine 1.25 H Glucose 177 H Calcium 6.1 L Liver Function 05/05/17 Range/Units 03:25 Total Bilirubin < 0.2 L (0.2-1.2) mg/dL AST 16 (5-34) Units/L ALT 24 (0-55) Units/L Alkaline Phosphatase 78 (38-126) Units/L Albumin 2.6 L (3.5-5.0) g/dL Consult Discharge Plan - Plan Referrals: NONE,PCP [Primary Care Provider] -
[2017-05-05] MEDS ORDERED: Calcium Gluconate 3,000 MG in D5% in Water 250 ML IVPB ONE (15:08)
--- NOTE | 2017-05-05 15:12 | Nephrology Progress Note ---
Date of Encounter: 05/05/17 Time of Encounter: 15:10 - Assessment and Plan (1) Adenocarcinoma of right lung Current Visit: Yes Status: Acute Per oncology. (2) Chronic kidney disease, stage III (moderate) Current Visit: Yes Status: Acute Managed by Dr. Butt. (3) Hypertension Current Visit: Yes Status: Acute Blood pressure is controlled. Titrate antihypertensive medications as needed. Qualifiers: Hypertension type: essential hypertension Qualified Code(s): I10 - Essential (primary) hypertension (4) Hypocalcemia Current Visit: Yes Status: Acute Etiology for the hypocalcemia is unclear. She seems to be responding to aggressive calcium replacement. Supplemental vitamin D has been ordered. (5) Hypothyroidism Current Visit: Yes Status: Acute TSH is normal. Qualifiers: Hypothyroidism type: acquired Qualified Code(s): E03.9 - Hypothyroidism, unspecified (6) Anemia in chronic illness Current Visit: No Status: Acute Monitor hemoglobin. No active bleeding identified. Transfuse as needed. Subjective Principal diagnosis: hypocalcemia Interval history: Patient seen. Her family is at her bedside. Are parasthesia is mildly improved. Objective - Vital Signs Vital signs: Vital Signs Temp Pulse Resp BP Pulse Ox 05/05/17 11:53 98.5 F 96 16 139/87 100 05/05/17 11:32 16 100 05/05/17 07:23 98.2 F 91 16 137/88 97 05/05/17 04:08 17 97 05/05/17 03:33 97.4 F L 111 18 135/85 98 05/04/17 23:28 98.2 F 113 20 118/77 100 05/04/17 23:16 17 92 05/04/17 21:15 91 05/04/17 19:57 97.8 F 91 15 132/81 91 05/04/17 15:44 16 96 05/04/17 15:34 96 Intake and Output 05/04/17 05/05/17 05/05/17 23:59 07:59 15:59 Intake Total 360 / 360 480 / 480 Output Total 700 / 700 1600 / 1600 Balance -340 / -340 -1120 / -1120 Intake: Oral 360 / 360 480 / 480 Output: Urine 700 / 700 1600 / 1600 Other: Meal Dinner Lunch Percent of Meal Consumed 100% 100% Stool Size Large Stool Consistency liquid soft Stool Color Brown # Voids 1 1 # Bowel Movements 1 Weight 99.79 kg Patient Weight 05/05/17 23:59 Weight 99.79 kg - General Appearance General appearance: Present: well-developed, well-nourished EENT: Present: ATNC Neck: Present: supple Additional Comments: Respirations are unlabored. Cardiology: Present: regular rate Neurologic: Present: alert and oriented x3 Psychiatric: Present: mood/affect appropriate - Lab 05/05/17 03:25 05/05/17 03:25 Most recent lab results Calcium 6.1 mg/dL (8.6-10.8) L 05/05/17 03:25 Magnesium 1.8 mg/dL (1.6-2.6) 05/05/17 03:25 Consult Discharge Plan - Plan Referrals: NONE,PCP [Primary Care Provider] -
--- NOTE | 2017-05-05 15:30 | Oncology Inp Progress Note ---
Date of Encounter: 05/05/17 Time of Encounter: 15:00 (1) Adenocarcinoma of right lung Current Visit: Yes Status: Acute Assessment and plan: metastatic, s/p multiple therapies and brain SRS for mets, on carbotaxol/ alimta. She had received denosumab for skeletal mets on 04/17/17~, likely was not taking ca supplementation. Denosumab known to cause hypocalcemia by its mechanism of action. LAbs look improved, continue supportive care Nephrology input appreciated. Plan d/w patient as above Oncology: Subj Interval history: Numbness in extremities, overall feels otherwise better - Constitutional Vitals: Vital Signs Temp Pulse Resp BP Pulse Ox 05/05/17 11:53 98.5 F 96 16 139/87 100 05/05/17 11:32 16 100 05/05/17 07:23 98.2 F 91 16 137/88 97 05/05/17 04:08 17 97 05/05/17 03:33 97.4 F L 111 18 135/85 98 05/04/17 23:28 98.2 F 113 20 118/77 100 05/04/17 23:16 17 92 05/04/17 21:15 91 05/04/17 19:57 97.8 F 91 15 132/81 91 05/04/17 15:44 16 96 05/04/17 15:34 96 Intake and Output 05/04/17 05/05/17 05/05/17 23:59 07:59 15:59 Intake Total 360 / 360 480 / 480 Output Total 700 / 700 1600 / 1600 Balance -340 / -340 -1120 / -1120 Intake: Oral 360 / 360 480 / 480 Output: Urine 700 / 700 1600 / 1600 Other: Meal Dinner Lunch Percent of Meal Consumed 100% 100% Stool Size Large Stool Consistency liquid soft Stool Color Brown # Voids 1 1 # Bowel Movements 1 Weight 99.79 kg Patient Weight 05/05/17 23:59 Weight 99.79 kg General appearance: obese - Head Head exam: Present: atraumatic, normal inspection - Eye Eye exam: Present: sclera anicteric - ENT ENT exam: Present: mucous membranes moist - Neck Neck exam: Present: full ROM - Respiratory Respiratory exam: Present: CTAB - GI/Abdominal GI/Abdominal exam: Present: normal bowel sounds, soft - Extremities Exam Extremities exam: Present: pedal edema Additional comments: discoloration - Neurological Exam Neurological exam: Present: alert, CN II-XII intact, oriented X3 Oncology: Obj Data - Labs CBC & Chem 7: 05/05/17 03:25 05/05/17 03:25 Labs: Laboratory Results - last 24 hr 05/04/17 05/04/17 05/04/17 04:52 04:52 14:54 WBC 4.0 L RBC 3.06 L Hgb 9.6 L Hct 28.8 L MCV 94.1 MCH 31.4 MCHC 33.3 RDW 16.9 H Plt Count 106 L MPV 10.5 Immature Gran % 1.7 Seg Neutrophils % 88.4 Lymphocytes % 5.5 Monocytes % 4.2 Eosinophils % 0.0 Basophils % 0.2 Neutrophils # 3.5 Lymphocytes # 0.2 L Monocytes # 0.2 Eosinophils # 0.0 Basophils # 0.0 Immature Plt Fraction 3.2 Sodium Potassium Chloride Carbon Dioxide BUN Creatinine Est GFR ( Amer) Est GFR (Non-Af Amer) BUN/Creatinine Ratio Glucose Calculated Osmolality Calcium Ionized Calcium 0.67 L Magnesium Total Bilirubin AST ALT Alkaline Phosphatase Serum Total Protein Albumin Globulin Albumin/Globulin Ratio PTH Intact 1397.5 H 05/05/17 05/05/17 05/05/17 03:25 03:25 03:25 WBC 5.2 RBC 2.74 L Hgb 8.6 L Hct 25.9 L MCV 94.5 MCH 31.4 MCHC 33.2 RDW 16.7 H Plt Count 105 L MPV 10.4 Immature Gran % 2.1 Seg Neutrophils % 87.1 Lymphocytes % 5.0 Monocytes % 5.6 Eosinophils % 0.0 Basophils % 0.2 Neutrophils # 4.5 Lymphocytes # 0.3 L Monocytes # 0.3 Eosinophils # 0.0 Basophils # 0.0 Immature Plt Fraction 2.8 Sodium 136 Potassium 4.2 D Chloride 106 Carbon Dioxide 18 L BUN 26 H Creatinine 1.25 H Est GFR ( Amer) 52 L Est GFR (Non-Af Amer) 43 L BUN/Creatinine Ratio 21 Glucose 177 H Calculated Osmolality 291 Calcium 6.1 L 6.1 L Ionized Calcium Magnesium 1.8 Total Bilirubin < 0.2 L AST 16 ALT 24 Alkaline Phosphatase 78 Serum Total Protein 5.8 L Albumin 2.6 L Globulin 3.2 Albumin/Globulin Ratio 0.8 L PTH Intact Consult Discharge Plan - Plan Referrals: NONE,PCP [Primary Care Provider] -
[2017-05-06 03:38] LABS: BUN/Creatinine Ratio 27 (6-26); Blood Urea Nitrogen 30 mg/dL (7-20); Carbon Dioxide 19 mEq/L (19-29); Chloride 107 mEq/L (98-109); Glucose 168 mg/dL (70-99); Magnesium 1.5 mg/dL (1.6-2.6); Osmolality,Calculated 290 (280-300); Potassium 4.5 mEq/L (3.5-4.5); Sodium 135 mEq/L (136-145); eGFR For African Americans > 60 (> 60); eGFR For Non-African Americans 50 (> 60)
[2017-05-06 03:41] LABS: Hematocrit 24.5 % (35.3-44.9); Hemoglobin 8.1 g/dL (11.5-15.4); Immature Granulocytes % 1.9 % (0-4); Lymphocytes # 0.3 K/mcL (0.6-4.6); Lymphocytes % 5.4 %; Mean Corpuscular HGB Conc 33.1 g/dL (31.6-35.5); Mean Corpuscular Hemoglobin 31.2 pg (28.0-33.3); Mean Corpuscular Volume 94.2 fL (83.0-100.0); Mean Platelet Volume 10.7 fL (9.4-12.4); Monocytes # 0.3 K/mcL (0.0-1.3); Monocytes % 4.4 %; Neutrophils # 5.2 K/mcL (1.6-8.9); Platelet Count 107 K/mcL (140-400); Red Cell Distribution Width 16.9 % (11.5-14.5); Segmented Neutrophils % 88.3 %
[2017-05-06] MEDS: Ipratropium/Albuterol Neb 3 ML IH SCH ×4 (05:02→23:09)
[2017-05-06] MEDS: Levothyroxine 25 MCG TABLET PO SCH (05:51)
[2017-05-06] MEDS: *HR* Heparin 5,000 UNIT/ML VIAL SQ SCH ×2 (05:52→18:22)
[2017-05-06] MEDS ORDERED: Magnesium Sulfate 2 GM in D5% in Water 100 ML IVPB ONE ×2 (08:29→12:31)
[2017-05-06] MEDS: Psyllium 1 PACKET POWD.PACK PO SCH (10:25)
[2017-05-06] MEDS: Multivit/Ca/Min/Fe/FA 1 TAB TABLET PO SCH (10:26)
[2017-05-06] MEDS: Metoprolol XL (24 HR) Succ 25 MG TAB.ER.24H PO SCH (10:26)
[2017-05-06] MEDS: *HR* Morphine Sulfate SR (12 HR) 15 MG TABLET.ER PO SCH ×3 (10:26→18:21)
[2017-05-06] MEDS: hydroCHLOROthiazide 25 MG TABLET PO SCH (10:26)
[2017-05-06] MEDS: Furosemide 40 MG TABLET PO SCH (10:26)
[2017-05-06] MEDS: Cholecalciferol (D-3) 1,000 UNIT TABLET PO SCH (10:27)
[2017-05-06] MEDS: Budesonide/Formoterol 160/4.5 MDI IH SCH ×2 (10:52→23:09)
[2017-05-06] MEDS ORDERED: Calcium Gluconate 3,000 MG in D5% in Water 250 ML IVPB ONE (12:29)
--- NOTE | 2017-05-06 13:07 | Nephrology Progress Note ---
Date of Encounter: 05/06/17 Time of Encounter: 13:04 - Assessment and Plan (1) Adenocarcinoma of right lung Current Visit: Yes Status: Acute Per oncology. (2) Chronic kidney disease, stage III (moderate) Current Visit: Yes Status: Acute Managed by Dr. Butt. (3) Hypertension Current Visit: Yes Status: Acute Blood pressure is controlled. Titrate antihypertensive medications as needed. Qualifiers: Hypertension type: essential hypertension Qualified Code(s): I10 - Essential (primary) hypertension (4) Hypocalcemia Current Visit: Yes Status: Acute Etiology for the hypocalcemia is related to chemotherapy (denosumab) per oncology. She seems to be responding to aggressive calcium replacement. Supplemental vitamin D has been ordered and can be titrated as needed. Will likely need to decrease once her calcium is replaced. (5) Hypothyroidism Current Visit: Yes Status: Acute TSH is normal. Qualifiers: Hypothyroidism type: acquired Qualified Code(s): E03.9 - Hypothyroidism, unspecified (6) Anemia in chronic illness Current Visit: No Status: Acute Monitor hemoglobin. No active bleeding identified. Transfuse as needed. Subjective Principal diagnosis: hypocalcemia Interval history: Patient seen. She feels better. No new complaint. Objective - Vital Signs Vital signs: Vital Signs Temp Pulse Resp BP Pulse Ox 05/06/17 12:04 97.7 F 108 18 135/84 100 05/06/17 10:52 18 100 05/06/17 08:49 98 F 101 18 146/94 100 05/06/17 05:02 12 98 05/06/17 03:15 97.6 F 94 16 147/90 97 05/05/17 23:54 98.0 F 102 16 116/75 93 05/05/17 22:37 18 93 05/05/17 18:52 98.1 F 81 16 153/92 99 05/05/17 17:03 18 97 05/05/17 15:49 97.8 F 97 19 136/82 97 Intake and Output 05/05/17 05/06/17 05/06/17 23:59 07:59 15:59 Intake Total 360 / 360 650 / 650 Output Total 750 / 750 Balance -390 / -390 650 / 650 Intake: Oral 360 / 360 650 / 650 Output: Urine 750 / 750 Other: Weight 102.557 kg Patient Weight 05/06/17 23:59 Weight 102.557 kg - General Appearance General appearance: Present: well-developed, well-nourished, obese EENT: Present: ATNC Additional Comments: Respirations are unlabored. Additional Comments: Tachycardic. Gastrointestinal: Present: obese Neurologic: Present: alert and oriented x3 Psychiatric: Present: mood/affect appropriate - Lab 05/06/17 03:10 05/06/17 03:10 Most recent lab results Calcium 7.0 mg/dL (8.6-10.8) L 05/06/17 03:10 Magnesium 1.5 mg/dL (1.6-2.6) L 05/06/17 03:10 Consult Discharge Plan - Plan Referrals: NONE,PCP [Primary Care Provider] -
--- NOTE | 2017-05-06 15:24 | Oncology Inp Progress Note ---
Date of Encounter: 05/06/17 Time of Encounter: 16:00 (1) Adenocarcinoma of right lung Current Visit: Yes Status: Acute Assessment and plan: metastatic, s/p multiple therapies and brain SRS for mets, on carbotaxol/ alimta. She had received denosumab for skeletal mets on 04/17/17~, likely was not taking ca supplementation. Denosumab known to cause hypocalcemia by its mechanism of action. LAbs look improved, continue supportive care Nephrology input appreciated. Plan d/w patient as above (2) Lung cancer Current Visit: No Status: Acute Assessment and plan: on carbo/taxol avastin, Rx to resume as outpatient. Hx skeletal and brain mets. PT as tolerated. Po supplements upon discharge She will f/u in clinic prior to continued chemotherapy with Dr Cabrera. Qualifiers: Laterality: unspecified laterality Lung location: unspecified part of lung Qualified Code(s): C34.90 - Malignant neoplasm of unspecified part of unspecified bronchus or lung Oncology: Subj Interval history: Feels well, denies overnight issues - Constitutional Vitals: Vital Signs Temp Pulse Resp BP Pulse Ox 05/06/17 12:04 97.7 F 108 18 135/84 100 05/06/17 10:52 18 100 05/06/17 08:49 98 F 101 18 146/94 100 05/06/17 05:02 12 98 05/06/17 03:15 97.6 F 94 16 147/90 97 05/05/17 23:54 98.0 F 102 16 116/75 93 05/05/17 22:37 18 93 05/05/17 18:52 98.1 F 81 16 153/92 99 05/05/17 17:03 18 97 05/05/17 15:49 97.8 F 97 19 136/82 97 Intake and Output 05/05/17 05/06/17 05/06/17 23:59 07:59 15:59 Intake Total 360 / 360 650 / 650 600 / 600 Output Total 750 / 750 Balance -390 / -390 650 / 650 600 / 600 Intake: Oral 360 / 360 650 / 650 600 / 600 Output: Urine 750 / 750 Other: Meal Lunch Percent of Meal Consumed 100% Weight 102.557 kg Patient Weight 05/06/17 23:59 Weight 102.557 kg General appearance: obese - Head Head exam: Present: atraumatic, normal inspection - Eye Eye exam: Present: sclera anicteric - ENT ENT exam: Present: mucous membranes moist - Respiratory Respiratory exam: Present: CTAB - Extremities Exam Extremities exam: Present: full ROM, pedal edema - Neurological Exam Neurological exam: Present: alert, CN II-XII intact, oriented X3 Oncology: Obj Data - Labs CBC & Chem 7: 05/06/17 03:10 05/06/17 03:10 Labs: Laboratory Results - last 24 hr 05/05/17 05/06/17 05/06/17 15:26 03:10 03:10 WBC 5.9 RBC 2.60 L Hgb 8.1 L Hct 24.5 L MCV 94.2 MCH 31.2 MCHC 33.1 RDW 16.9 H Plt Count 107 L MPV 10.7 Immature Gran % 1.9 Seg Neutrophils % 88.3 Lymphocytes % 5.4 Monocytes % 4.4 Eosinophils % 0.0 Basophils % 0.0 Neutrophils # 5.2 Lymphocytes # 0.3 L Monocytes # 0.3 Eosinophils # 0.0 Basophils # 0.0 Sodium Potassium Chloride Carbon Dioxide BUN Creatinine Est GFR ( Amer) Est GFR (Non-Af Amer) BUN/Creatinine Ratio Glucose Calculated Osmolality Calcium 6.2 L Ionized Calcium 0.94 L Magnesium 05/06/17 03:10 WBC RBC Hgb Hct MCV MCH MCHC RDW Plt Count MPV Immature Gran % Seg Neutrophils % Lymphocytes % Monocytes % Eosinophils % Basophils % Neutrophils # Lymphocytes # Monocytes # Eosinophils # Basophils # Sodium 135 L Potassium 4.5 Chloride 107 Carbon Dioxide 19 BUN 30 H Creatinine 1.10 Est GFR ( Amer) > 60 Est GFR (Non-Af Amer) 50 L BUN/Creatinine Ratio 27 H Glucose 168 H Calculated Osmolality 290 Calcium 7.0 L Ionized Calcium Magnesium 1.5 L Consult Discharge Plan - Plan Referrals: NONE,PCP [Primary Care Provider] -
--- NOTE | 2017-05-06 15:52 | Internal Med Progress Note ---
Date of Encounter: 05/06/17 Time of Encounter: 10:00 - Assessment and plan (1) Hypertension Current Visit: Yes Status: Acute Assessment and plan: Continue home medications. Hydralazine IV as needed Qualifiers: Hypertension type: essential hypertension Qualified Code(s): I10 - Essential (primary) hypertension (2) Hypothyroidism Current Visit: Yes Status: Acute Assessment and plan: Continue home medication synthroid. Qualifiers: Hypothyroidism type: acquired Qualified Code(s): E03.9 - Hypothyroidism, unspecified (3) Hypomagnesemia Current Visit: Yes Status: Acute Assessment and plan: Patient's magnesium is low today, supplement was given Will monitor. (4) DVT prophylaxis Current Visit: Yes Status: Acute Assessment and plan: SQ heparin (5) Hypocalcemia Current Visit: No Status: Inactive Assessment and plan: Severe low but improved. Add the by mouth calcium supplement. Continue vitamin D and Rocaltrol. (6) Hypokalemia Current Visit: No Status: Inactive Assessment and plan: Improved after supplementation. Potassium level normal today (7) Lung cancer Current Visit: No Status: Acute Assessment and plan: Oncology following. Qualifiers: Laterality: unspecified laterality Lung location: unspecified part of lung Qualified Code(s): C34.90 - Malignant neoplasm of unspecified part of unspecified bronchus or lung (8) UTI (urinary tract infection) Current Visit: No Status: Inactive Assessment and plan: Continue Rocephin IV. Urine culture from [facility] shows Escherichia coli sensitive to Rocephin Qualifiers: Urinary tract infection type: acute cystitis Hematuria presence: without hematuria Qualified Code(s): N30.00 - Acute cystitis without hematuria (9) Weakness Current Visit: Yes Status: Acute Assessment and plan: We think patients symptoms are consistent with hypocalcemia, malignancy. Continue correct electrolytes abnormality. Continue PT OT when patient in hospital. Weakness has improved after treatment - Time Spent With Patient 25 - 35 minutes - Subjective Interval history: Patient was seen and examined. Feels much better, less tingling and numbness. Eat and drink well. Hypocalcemia has improved. Improved renal function. Vitals are stable. The calcium level is 7.0 today. Will continue vitamin D and Rocaltrol and po calcium. Closely follow up renal function and electrolytes level. Plan to continue PTOT Hospital and discharged home as home oxygen set up. - Constitutional Vitals: Temp Pulse Resp BP Pulse Ox 97.7 F 108 18 135/84 100 05/06/17 12:04 05/06/17 12:04 05/06/17 12:04 05/06/17 12:04 05/06/17 12:04 General appearance: Present: mild distress, A&O X 3, answers questions appropriately - Head Head exam: Present: atraumatic, normocephalic - Eye Eye exam: Present: PERRL, conjuntiva pink, sclera anicteric Pupils: Present: PERRL - Neck Neck exam general surgery: Present: supple, trachea midline. Absent: lymphadenopathy - Respiratory Respiratory exam: Present: CTAB. Absent: accessory muscle use, rales, rhonchi, wheezes - Cardiovascular Cardiovascular exam: Present: RRR, +S1, +S2. Absent: diastolic murmur, gallop, rubs, systolic murmur - GI/Abdominal GI/Abdominal exam: Present: normal bowel sounds, soft, no peritoneal signs. Absent: distended, tenderness - Extremities Exam Extremities exam: Present: warm, radial pulses palpable and symmetrical. Absent : calf tenderness, cyanotic, pedal edema - Neurological Exam Neurological exam: Present: CN II-XII intact, oriented X3, no focal deficits. Absent: pronater drift, facial droop, speech deficit - Skin Skin exam: Present: dry, intact Internal Medicine: Result - Labs CBC & Chem 7: 05/06/17 03:10 05/06/17 03:10 Labs: Short CBC 05/06/17 Range/Units 03:10 WBC 5.9 (4.3-11.1) K/mcL Hgb 8.1 L (11.5-15.4) g/dL Hct 24.5 L (35.3-44.9) % Plt Count 107 L (140-400) K/mcL Neutrophils # 5.2 (1.6-8.9) K/mcL BMP 05/05/17 05/06/17 15:26 03:10 Sodium 135 L Potassium 4.5 Chloride 107 Carbon Dioxide 19 BUN 30 H Creatinine 1.10 Glucose 168 H Calcium 6.2 L 7.0 L Consult Discharge Plan - Plan Referrals: NONE,PCP [Primary Care Provider] -
[2017-05-06] MEDS ORDERED: Calcium Gluconate 3,000 MG in D5% in Water 250 ML IVPB PRN (19:00)
[2017-05-07] MEDS: *HR* Morphine Sulfate SR (12 HR) 15 MG TABLET.ER PO SCH ×2 (00:37→08:08)
[2017-05-07] MEDS: Ipratropium/Albuterol Neb 3 ML IH SCH ×3 (04:13→16:09)
[2017-05-07] MEDS: *HR* Heparin 5,000 UNIT/ML VIAL SQ SCH (05:09)
[2017-05-07] MEDS: Levothyroxine 25 MCG TABLET PO SCH (05:09)
[2017-05-07 06:14] LABS: Basophils % 0.1 %; Hematocrit 26.9 % (35.3-44.9); Hemoglobin 9.2 g/dL (11.5-15.4); Immature Granulocytes % 1.5 % (0-4); Lymphocytes # 0.5 K/mcL (0.6-4.6); Lymphocytes % 4.2 %; Mean Corpuscular HGB Conc 34.2 g/dL (31.6-35.5); Mean Corpuscular Hemoglobin 31.7 pg (28.0-33.3); Mean Corpuscular Volume 92.8 fL (83.0-100.0); Mean Platelet Volume 10.4 fL (9.4-12.4); Monocytes # 0.4 K/mcL (0.0-1.3); Monocytes % 3.5 %; Neutrophils # 9.8 K/mcL (1.6-8.9); Platelet Count 141 K/mcL (140-400); Red Cell Distribution Width 16.8 % (11.5-14.5); Segmented Neutrophils % 90.7 %
[2017-05-07 06:19] LABS: Albumin/Globulin Ratio 0.9 (1.1-2.2); Bilirubin,Total 0.2 mg/dL (0.2-1.2); Globulin 3.2 g/dL (2.4-3.5); Potassium 5.2 mEq/L (3.5-4.5); Total Protein 6.2 g/dL (6.0-8.3)
[2017-05-07 06:21] LABS: Calcium 8.5 mg/dL (8.6-10.8)
[2017-05-07] MEDS: hydroCHLOROthiazide 25 MG TABLET PO SCH (08:08)
[2017-05-07] MEDS: Multivit/Ca/Min/Fe/FA 1 TAB TABLET PO SCH (08:09)
[2017-05-07] MEDS: Metoprolol XL (24 HR) Succ 25 MG TAB.ER.24H PO SCH (08:09)
[2017-05-07] MEDS: Furosemide 40 MG TABLET PO SCH (08:09)
[2017-05-07] MEDS: Psyllium 1 PACKET POWD.PACK PO SCH (08:11)
[2017-05-07] MEDS: Budesonide/Formoterol 160/4.5 MDI IH SCH (10:44)
--- NOTE | 2017-05-07 14:02 | Oncology Inp Progress Note ---
<Jules Williamson - Last Filed: 05/07/17 16:38> Date of Encounter: 05/07/17 Time of Encounter: 13:45 (1) Adenocarcinoma of right lung Status: Acute Assessment and plan: - With history of skeletal and brain mets s/p brain SRS and on Carbotaxol/ Alimita and denosumab (for skeletal mets) - Continue supportive care. - Follow up with [facility] after discharge. (2) Hypocalcemia Status: Acute Assessment and plan: - Ca 4.8 on admission. - Secondary to denosumab in the setting of inadequate Ca supplementation. - Improves as Ca 8.5 today. - Continue Ca supplement. Oncology: Subj Interval history: Patient was seen and examined this afternoon. Patient reports feeling better compared to on admission. Patient denies nausea, vomiting, diarrhea, fever. Patient wonders if she can go home today. - Constitutional Vitals: Vital Signs Temp Pulse Resp BP Pulse Ox 05/07/17 12:13 98.4 F 91 16 136/84 97 05/07/17 10:46 16 96 05/07/17 10:31 97 05/07/17 07:04 98.3 F 90 16 144/88 98 05/07/17 04:13 16 98 05/07/17 03:39 98.1 F 93 16 154/100 100 05/06/17 23:42 97.7 F 99 16 150/79 96 05/06/17 23:10 16 98 05/06/17 19:26 98.1 F 94 16 167/96 99 05/06/17 17:01 97.9 F 92 17 154/92 98 05/06/17 16:21 18 95 Intake and Output 05/06/17 05/07/17 05/07/17 23:59 07:59 15:59 Intake Total 600 / 600 Output Total 500 / 500 850 / 850 Balance -500 / -500 -850 / -850 600 / 600 Intake: Oral 600 / 600 Output: Urine 500 / 500 850 / 850 Other: Meal Lunch Percent of Meal Consumed 100% Weight 102.058 kg Patient Weight 05/07/17 23:59 Weight 102.058 kg - Head Head exam: Present: atraumatic, normocephalic - Eye Eye exam: Present: EOMI - ENT ENT exam: Present: mucous membranes moist - Neck Neck exam: Present: normal inspection - Respiratory Respiratory exam: Present: CTAB. Absent: rales, rhonchi, wheezes - Cardiovascular Cardiovascular exam: Present: +S1, +S2, tachycardia - GI/Abdominal GI/Abdominal exam: Present: normal bowel sounds, soft. Absent: tenderness - Extremities Exam Extremities exam: Present: full ROM, pedal edema (2+ pitting BLE edema) - Neurological Exam Neurological exam: Present: alert, oriented X3, no focal deficits - Skin Skin exam: Present: normal color, warm Oncology: Obj Data - Labs CBC & Chem 7: 05/07/17 05:19 05/07/17 05:19 Labs: Laboratory Results - last 24 hr 05/07/17 05/07/17 05/07/17 05:19 05:19 12:30 WBC 10.8 D RBC 2.90 L Hgb 9.2 L Hct 26.9 L MCV 92.8 MCH 31.7 MCHC 34.2 RDW 16.8 H Plt Count 141 MPV 10.4 Immature Gran % 1.5 Seg Neutrophils % 90.7 Lymphocytes % 4.2 Monocytes % 3.5 Eosinophils % 0.0 Basophils % 0.1 Neutrophils # 9.8 H Lymphocytes # 0.5 L Monocytes # 0.4 Eosinophils # 0.0 Basophils # 0.0 Sodium 130 L Potassium 5.2 H Chloride 101 Carbon Dioxide 18 L BUN 38 H Creatinine 1.37 H Est GFR ( Amer) 47 L Est GFR (Non-Af Amer) 39 L BUN/Creatinine Ratio 28 H Glucose 168 H Calculated Osmolality 283 Calcium 8.5 L D Ionized Calcium 1.17 Magnesium 2.0 Total Bilirubin 0.2 AST 26 ALT 34 Alkaline Phosphatase 78 Serum Total Protein 6.2 Albumin 3.0 L Globulin 3.2 Albumin/Globulin Ratio 0.9 L Consult Discharge Plan - Plan Instructions: Cefdinir (By mouth), Calcium Gluconate (Injection) Additional Instructions: Please continue to take a 6 day course of antibiotics that you are being prescribed. We have also given you a prescription for oxygen at home. Please continue to take oral vitamin D and calcium supplementation. We have given you follow-up with your design architect in the next 1-2 weeks. Please attend your already scheduled appointment with Dr. Cabrera tomorrow. Referrals: [facility] [Outside] Odin Cabrera MD [Partnered Physician] - Ari Butt DO [Partnered Physician] - NONE,PCP [Primary Care Provider] - Prescriptions: Calcium Carbonate [Tums] 1,000 mg PO DAILY #30 tab.chew Cefdinir [Omnicef] 300 mg PO BID #12 capsule Ergocalciferol (VITAMIN D2) [Vitamin D2] 1,000 unit PO DAILY #30 tablet <Odin Cabrera - Last Filed: 05/07/17 21:02> Date of Encounter: 05/07/17 - Constitutional Vitals: Vital Signs Temp Pulse Resp BP Pulse Ox 05/07/17 15:23 97.8 F 96 17 164/98 98 05/07/17 12:13 98.4 F 91 16 136/84 97 05/07/17 10:46 16 96 05/07/17 10:31 97 05/07/17 07:04 98.3 F 90 16 144/88 98 05/07/17 04:13 16 98 05/07/17 03:39 98.1 F 93 16 154/100 100 05/06/17 23:42 97.7 F 99 16 150/79 96 05/06/17 23:10 16 98 Intake and Output 05/07/17 05/07/17 05/08/17 08:59 16:59 00:59 Intake Total 600 / 600 Output Total 850 / 850 400 / 400 Balance -850 / -850 200 / 200 Intake: Oral 600 / 600 Output: Urine 850 / 850 400 / 400 Other: Meal Lunch Percent of Meal Consumed 100% Weight 102.058 kg Patient Weight 05/08/17 00:59 Weight 102.058 kg Oncology: Obj Data - Labs CBC & Chem 7: 05/07/17 05:19 05/07/17 05:19 Labs: Laboratory Results - last 24 hr 05/07/17 05/07/17 05/07/17 05:19 05:19 12:30 WBC 10.8 D RBC 2.90 L Hgb 9.2 L Hct 26.9 L MCV 92.8 MCH 31.7 MCHC 34.2 RDW 16.8 H Plt Count 141 MPV 10.4 Immature Gran % 1.5 Seg Neutrophils % 90.7 Lymphocytes % 4.2 Monocytes % 3.5 Eosinophils % 0.0 Basophils % 0.1 Neutrophils # 9.8 H Lymphocytes # 0.5 L Monocytes # 0.4 Eosinophils # 0.0 Basophils # 0.0 Sodium 130 L Potassium 5.2 H Chloride 101 Carbon Dioxide 18 L BUN 38 H Creatinine 1.37 H Est GFR ( Amer) 47 L Est GFR (Non-Af Amer) 39 L BUN/Creatinine Ratio 28 H Glucose 168 H Calculated Osmolality 283 Calcium 8.5 L D Ionized Calcium 1.17 Magnesium 2.0 Total Bilirubin 0.2 AST 26 ALT 34 Alkaline Phosphatase 78 Serum Total Protein 6.2 Albumin 3.0 L Globulin 3.2 Albumin/Globulin Ratio 0.9 L - Attending Attestation I examined this patient and my medical decision-making was reviewed with the resident, Dr. Williamson. I agree with the documented findings, disposition and treatment plan as described except to the extent set forth below. She has recovered from her acute onset hypocalcemia. We will continue to monitor as an outpatient after discharge.
--- NOTE | 2017-05-07 14:12 | Discharge Summary ---
<Cindy Newell H - Last Filed: 05/07/17 14:14> Date of Encounter: 05/07/17 Time of Encounter: 09:00 - Discharge Diagnosis (1) Weakness Priority: Primary Status: Acute (2) Hypocalcemia Priority: Primary Status: Acute (3) Urinary retention Priority: Secondary Status: Acute (4) Hypomagnesemia Priority: Secondary Status: Acute (5) Lung cancer Priority: Secondary Status: Acute Qualifiers: Laterality: unspecified laterality Lung location: unspecified part of lung Qualified Code(s): C34.90 - Malignant neoplasm of unspecified part of unspecified bronchus or lung (6) Hypertension Priority: Secondary Status: Acute Qualifiers: Hypertension type: essential hypertension Qualified Code(s): I10 - Essential (primary) hypertension (7) Hypothyroidism Priority: Secondary Status: Acute Qualifiers: Hypothyroidism type: acquired Qualified Code(s): E03.9 - Hypothyroidism, unspecified (8) DVT prophylaxis Priority: Secondary Status: Acute (9) UTI (urinary tract infection) Priority: Secondary Status: Acute Qualifiers: Urinary tract infection type: acute cystitis Hematuria presence: without hematuria Qualified Code(s): N30.00 - Acute cystitis without hematuria - Discharge Medications Prescriptions: Calcium Carbonate [Tums] 1,000 mg PO DAILY #30 tab.chew Cefdinir [Omnicef] 300 mg PO BID #12 capsule Ergocalciferol (VITAMIN D2) [Vitamin D2] 1,000 unit PO DAILY #30 tablet Home Medications: Budesonide/Formoterol 160/4.5 [Symbicort 160/4.5] 2 puff IH BIDR #3 hfa.aer.ad 01/28/16 [Rx] Acetaminophen [Tylenol Arthritis] 650 mg PO Q6H PRN 05/09/16 [History] Albuterol Sulfate [Proair Hfa] 1 - 2 puff IH Q4-6H PRN 05/09/16 [History] Multivits Min/Iron/FA/Herb#186 [Hair, Skin and Nails Caplet] 1 each PO DAILY [History] Psyllium Husk [Daily Fiber] 0.52 gm PO DAILY 05/09/16 [History] Docusate [Colace] 100 mg PO DAILY PRN 06/06/16 [History] hydroCHLOROthiazide [Hydrochlorothiazide] 25 mg PO DAILY 06/06/16 [History] Omeprazole [PriLOSEC] 20 mg PO DAILY #90 capsule 06/27/16 [Rx] Ondansetron [Zofran] 8 mg PO Q8HR PRN #90 tablet 06/27/16 [Rx] Prochlorperazine Maleate [Compazine] 10 mg PO Q6HR PRN #60 tablet 06/27/16 [Rx] Magic Mouthwash 10 ml PO TID PRN 07/07/16 [History] Potassium Chloride [K-Tab ER] 40 meq PO DAILY #10 tablet.er 02/15/17 [Rx] Dexamethasone [Decadron] 4 mg PO BID #60 tab 03/15/17 [Rx] Oxycodone HCl [Oxaydo] 5 mg PO Q4H PRN #90 tablet.orl 04/26/17 [Rx] Duloxetine HCl [Cymbalta] 60 mg PO DAILY #90 capsule.dr 05/01/17 [Rx] Furosemide [Lasix] 40 mg PO DAILY #90 tablet 05/01/17 [Rx] Levothyroxine [Synthroid] 75 mcg PO 0630 05/03/17 [History] Metoprolol XL (24 HR) Succ [Toprol Xl] 25 mg PO DAILY 05/03/17 [History] Morphine Sulfate SR (12 HR) [MS Contin] 15 mg PO Q8HR 05/03/17 [History] Calcium Carbonate [Tums] 1,000 mg PO DAILY #30 tab.chew 05/07/17 [Rx] Cefdinir [Omnicef] 300 mg PO BID #12 capsule 05/07/17 [Rx] Ergocalciferol (VITAMIN D2) [Vitamin D2] 1,000 unit PO DAILY #30 tablet [Rx] Allergies/Adverse Reactions: 3 Allergy/AdvReac Type Severity Reaction Status Date / Time No Known Allergies Allergy Verified 04/17/17 08:35 Date of admission: 05/04/17 19:55 Primary care physician: PCP NONE Consults: 05/03/17 17:24 Consult to Occupational Therapy [CONS] Routine Comment: Evaluate, develop and implement POC Reason for Consult: Weakness Consult to Physical Therapy [CONS] Routine Comment: Evaluate, develop and implement POC Reason for Consult: Weakness 05/03/17 17:39 Consult to Oncology Hematology [CONS] Routine Consulting Provider: Tra Caban Jr Reason for Consult: Lung cancer on chemotherapy, called by [facility] emergency room Call Completed: Yes 05/04/17 12:38 Consult to Rotary Surface Grinder [CONS] Routine Reason for SW Consult: discharge planning. Pt/OT is on board 05/04/17 15:44 Consult to Nephrology [CONS] Routine Consulting Provider: Tra Caban Jr Reason for Consult: critical low calcium 4.8 24 hours, Lung cacner on [place] therapy and xgeva Time Notified: 15:00 Call Completed: Yes - Patient Status Disposition: Home, Self-Care Condition: Fair Functional capacity at discharge: independent ambulation Overall status at discharge: patient is progressing back to baseline - Discharge Instructions Follow Up With: NONE,PCP [Primary Care Provider] - Ari Butt DO [Partnered Physician] - Odin Cabrera MD [Partnered Physician] - [facility] [Outside] Additional Instructions: Please continue to take a 6 day course of antibiotics that you are being prescribed. We have also given you a prescription for oxygen at home. Please continue to take oral vitamin D and calcium supplementation. We have given you follow-up with your surgical services tech in the next 1-2 weeks. Please attend your already scheduled appointment with Dr. Cabrera tomorrow. - Diet and Activity Activity: increase activity as tolerated Diet: advance to your usual diet Hospital course: Ms. Barba is a 62 year old female with past medical history of stage IV lung cancer with brain and bone metastases currently receiving chemotherapy, hypertension, congestive heart failure, and hypothyroidism. Ms. Barba presented to the [facility] emergency room on for whole-body weakness, pain, and numbness. Patient was admitted for hypocalcemia, hypomagnesemia, and electrolyte abnormalities. Patient was repleted aggressively with calcium and vitamin D supplementation. Heme/Onc was consulted. They decided to consult nephrology as patient was having minimal urinary retention as well as UTI. They did not initially find the patient's symptomatic hypocalcemia to be related to her lung cancer or chemotherapy. However, it was found that the etiology for the patient's hypocalcemia was related to a chemotherapy agent, denosumab, that patient had received in March. Patient was responding well to aggressive calcium replacement. Patient wished to be discharged home from the hospital as she has appointment with her oncologist the following day. We decided to discharge the patient home with oral vitamin D and calcium gluconate supplementation. We did not send her home with Rocaltrol which the patient was receiving in the hospital. We also gave the patient an order for home oxygen, as well as follow-up with nephrology. We also discharged her with 6 days of Omnicef to complete a 10 day course of antibiotic coverage for her UTI. All questions were answered and patient expressed understanding of plan. - Time Spent with Patient Total time spent providing and/or coordinating discharge services: Greater than 30 minutes (40 minutes) - Constitutional Vitals: Temp Pulse Resp BP Pulse Ox 98.4 F 91 16 136/84 97 05/07/17 12:13 05/07/17 12:13 05/07/17 12:13 05/07/17 12:13 05/07/17 12:13 General appearance: Present: mild distress, A&O X 3, answers questions appropriately - Respiratory Respiratory exam: Present: decreased breath sounds. Absent: accessory muscle use, rales, respiratory distress, rhonchi, wheezes - Cardiovascular Cardiovascular exam: Present: RRR, +S1, +S2. Absent: diastolic murmur, gallop, rubs, systolic murmur - GI/Abdominal GI/Abdominal exam: Present: normal bowel sounds, soft, no peritoneal signs. Absent: distended, tenderness - Extremities Exam Extremities exam: Present: pedal edema (3+), warm, radial pulses palpable and symmetrical. Absent: calf tenderness, cyanotic <Rosmery Burks - Last Filed: 05/07/17 15:31> Date of Encounter: 05/07/17 - Discharge Diagnosis (1) Hypertension Status: Acute Qualifiers: Hypertension type: essential hypertension Qualified Code(s): I10 - Essential (primary) hypertension (2) Hypothyroidism Status: Acute Qualifiers: Hypothyroidism type: acquired Qualified Code(s): E03.9 - Hypothyroidism, unspecified (3) Hypomagnesemia Status: Acute (4) DVT prophylaxis Status: Acute (5) Hypocalcemia Status: Inactive (6) Hypokalemia Status: Inactive (7) Lung cancer Status: Acute Qualifiers: Laterality: unspecified laterality Lung location: unspecified part of lung Qualified Code(s): C34.90 - Malignant neoplasm of unspecified part of unspecified bronchus or lung (8) UTI (urinary tract infection) Status: Inactive Qualifiers: Urinary tract infection type: acute cystitis Hematuria presence: without hematuria Qualified Code(s): N30.00 - Acute cystitis without hematuria (9) Weakness Status: Acute Date of admission: 05/04/17 19:55 Primary care physician: PCP NONE Consults: 05/03/17 17:24 Consult to Occupational Therapy [CONS] Routine Comment: Evaluate, develop and implement POC Reason for Consult: Weakness Consult to Physical Therapy [CONS] Routine Comment: Evaluate, develop and implement POC Reason for Consult: Weakness 05/03/17 17:39 Consult to Oncology Hematology [CONS] Routine Consulting Provider: Tra Caban Jr Reason for Consult: Lung cancer on chemotherapy, called by [facility] emergency room Call Completed: Yes 05/04/17 12:38 Consult to Rotary Surface Grinder [CONS] Routine Reason for SW Consult: discharge planning. Pt/OT is on board 05/04/17 15:44 Consult to Nephrology [CONS] Routine Consulting Provider: Tra Caban Jr Reason for Consult: critical low calcium 4.8 24 hours, Lung cacner on [place] therapy and xgeva Time Notified: 15:00 Call Completed: Yes Hospital course: Ms. Barba is a 62 year old female - Time Spent with Patient Total time spent providing and/or coordinating discharge services: - Constitutional Vitals: Temp Pulse Resp BP Pulse Ox 97.8 F 96 17 164/98 98 05/07/17 15:23 05/07/17 15:23 05/07/17 15:23 05/07/17 15:23 05/07/17 15:23 - Attending Attestation I have seen and examined the patient independently. I have discussed with resident Dr Newell regarding discharge planning. Agree with the documentation and management plan. She now admitted for hypocalcemia, which may be caused by chemotherapy per oncology consult. Patient was treated with IV calcium. She was also treated with vitamin D and rocaltriol. After treatment, her calcium level get back to normal. We will discharge patient on by mouth calcium and vitamin D as patient has vitamin D deficiency. Patient will follow up with PCP and oncology as outpatient. Patient's symptoms and has significantly improved. Patient also has UTI, urine culture shows Escherichia coli pansensitive, will continue Cefdinir by mouth for 6 more days.
[2017-05-07 15:25] VITALS: BP 164/98
== END 2017-05-07 16:00 | disposition home or self-care (01) | DRG 641 ==
LOC: 3BNU
PROVIDERS: ADMIT Internal Medicine; ATTEND Registered Nurse